=== PATIENT | female | born 1990 | race Caucasian/White ===

== ENCOUNTER 2018-10-26 07:11 | Emergency (ER) | payer SELFPAY ==
[~2018-10-26 07:11] MED LIST: ALB0.5 INH; AZIT500T47 PO; CODEINE; DOXY100T3 PO; HYDR115S3 PO; PHENERGAN; PRE20 PO
[2018-10-26] MEDS ORDERED: LIDOCAINE 2% VISC SLN 15ML UDC PO ONE (07:40)
[2018-10-26] MEDS ORDERED: BENZONATATE 100 MG CAP PO ONE (07:40)
[2018-10-26 08:00] VITALS: BP 150/103
--- NOTE | 2018-10-26 08:01 | ER Report ---
History and Physical Time Seen By MD: 07:20 Hx. of Stated Complaint: bloddy sputum, cough, sore throat HPI/ROS CHIEF COMPLAINT: Cough with blood HISTORY OF PRESENT ILLNESS: 28-year-old female has had approximately 2 weeks of intermittent cough, mild shortness of breath, mild nausea, hoarseness. She state s her sister is have the same for approximately one week longer than her. Patient presents because today when she coughed she noticed some blood in the cough. Her sputum was mostly bloody and states it filled about half a cup. She has never had blood before. She is not increasingly short of breath. She admits to smoking approximately 2-3 cigarettes a day. She denies alcohol. She denies other medical problems or coagulopathy. She has not had Weight loss, night sweats, fevers, bone pain. She has tried [id number] medications with minimal relief. REVIEW OF SYSTEMS: Constitutional: No fever, no chills. Eyes: No discharge. ENT: sore throat secondary to drainage Cardiovascular: No chest pain, no palpitations. Respiratory: above Gastrointestinal: No abdominal pain, no vomiting. Genitourinary: no dysuria Musculoskeletal: No back pain. Skin: No rashes. Neurological: mild headache Remainder of the 14 system rev: Yes Allergies: Coded Allergies: No Known Drug Allergies (Unverified , 06/17/12) Home Meds Discontinued Reported Medications Albuterol Sulfate (Albuterol Inh Conc) 2.5 Mg/0.5 Ml Nebu, 2.5 MG INH ONCE DILUTE BEFORE USING 06/17/12 Reviewed Nurses Notes: Yes Hx Smoking: Yes Hx Substance Use Disorder: No Hx Alcohol Use: No Constitutional Vital Sign - Last 24 Hours 10/26/18 07:20 Temp 98.2 Pulse 78 Resp 20 B/P (MAP) 145/108 Pulse Ox 97 O2 Delivery Room Air Physical Exam General Appearance: The patient is alert, has no immediate need for airway protection and no signs of toxicity. occasional nonproductive cough in ED, thoug h pt is able to produce one sample with sm amount of hemoptysis that is predominantly sputum. Hoarse voice Eyes: Pupils equal and round no pallor or injection. ENT, Mouth: Mucous membranes are moist. OP with cobblestoning, mild erythema, no tonsilar exudates. Uvula midline, no HEADING MAKER Respiratory: There are no retractions, lungs are clear to auscultation. No tachypnea, no r/r/w Cardiovascular: Regular rate and rhythm. Gastrointestinal: Abdomen is soft and non tender, no masses, bowel sounds normal. Neurological: alert, oriented, moves all ext Skin: Warm and dry, no rashes. Musculoskeletal: No cervical LAD Extremities are nontender, nonswollen and have full range of motion. DIFFERENTIAL DIAGNOSIS: After history and physical exam differential diagnosis w as considered for PE, tumor, pneumonia, bronchitis, or other emergent etiology of symptoms. Medical Decision Making EKG/Imaging Imaging X-ray: chest was obtained. I viewed the images myself on the PACS system. My interpretation of the images is: NACPD. The radiologist interpretation had no clinically significant variation from this interpretation. ED Course/Re-evaluation ED Course 28 f with ongoing cough and new hemoptysis. Considered multiple etiologies in differential but constellation of symptoms and posttest prob most c/w bronchitis. Will tx supportively. Pt aware of elevated bp and will f/u for re- eval. Decision to Disposition Date: Oct 26, 2018 Decision to Disposition Time: 08:23 Depart Departure Latest Vital Signs Vital Signs Date Time Temp Pulse Resp B/P (MAP) Pulse Ox O2 Delivery O2 Flow Rate FiO2 10/26/18 07:20 98.2 78 20 145/108 97 Room Air Impression: Primary Impression: Bronchitis Additional Impressions: Hemoptysis Elevated blood pressure reading Condition: Improved Disposition: HOME OR SELF-CARE Referrals: [facility] New Scripts Benzonatate 100 Mg Cap (TESSALON PERLE 100 MG CAP) 100 Mg Capsule 100 MG PO TID for cough, #15 CAP Prov: ANIYAH CRANE MD 10/26/18 Departure Forms: ER Transition Record, Off Work/School Form, School or Work Release?: Work Number of days to be released: 2 Patient Portal Information Patient Instructions: Acute Bronchitis (ED), Hemoptysis (ED) Additional Instructions: As we discussed, you may try honey or salt water for the sore throat. You may continue to use over the counter medications such as nyquil or ibuprofen, as well as the tessalon for cough. Return for worsening symptoms or any concerns. Problem Qualifiers ANIYAH CRANE MD Oct 26, 2018 08:01
--- NOTE | 2018-10-26 08:11 | RADIOLOGY IMAGING REPORT ---
FACILITY: [facility] PATIENT NAME: Zehra Sandhu : 1990 MR: [id number] V: [id number] EXAM DATE: ORDERING PHYSICIAN: ANIYAH CRANE TECHNOLOGIST: Location: [facility] Patient: Zehra Sandhu : 1990 Visit/Account:[id number] Date of Sevice: 10/26/2018 Chest single view: HISTORY: Dyspnea, hemoptysis. COMPARISON: 06/06/2012 FINDINGS: Frontal and lateral chest: Cardiomediastinal silhouette is within normal limits. There is n o infiltrate or pleural effusion. No pneumothorax. Pulmonary vasculature is normal. Osseous structures are unremarkable for age. IMPRESSION: No evidence of acute cardiopulmonary abnormality. Report Dictated By: Alivia Tamayo MD at 10/26/2018 8:05 AM Report E-Signed By: Alivia Tamayo MD at 10/26/2018 8:06 AM WSN:[id number]
[2018-10-26] MEDS ORDERED: BENZ100C4 PO (08:24)
== END 2018-10-26 08:32 | disposition home or self-care (01) ==
LOC: ER 07:23
DX: J40 Bronchitis, not specified as acute or chronic (principal); R04.2 Hemoptysis; R03.0 Elevated blood-pressure reading, without diagnosis of hypertension; F17.210 Nicotine dependence, cigarettes, uncomplicated
CPT/HCPCS: 71046; 99283

== ENCOUNTER 2019-03-08 23:50 | Emergency (ER) | payer SELFPAY ==
[~2019-03-08 23:50] MED LIST changes: +BENZ100C4 PO
--- NOTE | 2019-03-09 00:04 | ER Report ---
History and Physical Time Seen By MD: 00:04 Hx. of Stated Complaint: SICK FOR 5 DAYS, SORE THROAT & VOMITING X 2-3 DAYS HPI/ROS CHIEF COMPLAINT: sore throat, vomiting HISTORY OF PRESENT ILLNESS: This is a 28 year old female. She has been sick for about 5 days. Sore throat, intermittent vomiting. Today started to lose voice and coughing. No runny nose. Some ear pain. No abdominal pain. Last time similar symptoms and told she had bronchitis, then was positive for strep, treated with antibiotics and got better. She does smoke, but no history of asthma or COPD. NO use of inhalers. Allergies: Coded Allergies: No Known Drug Allergies (Unverified , 03/08/19) Home Meds Active Scripts Benzonatate 100 Mg Cap (TESSALON PERLE 100 MG CAP) 100 Mg Capsule, 100 MG PO TID PRN for COUGH, #15 CAP 0 Refills Prov:GORDON ALLEN MD 03/09/19 Prednisone (PREDNISONE) 20 Mg Tablet, 60 MG PO QDAY for 4 Days, #12 TAB 0 Refills Prov:GORDON ALLEN MD 03/09/19 Discontinued Scripts Benzonatate 100 Mg Cap (TESSALON PERLE 100 MG CAP) 100 Mg Capsule, 100 MG PO TID for cough, #15 CAP Prov:ANIYAH CRANE MD 10/26/18 Reviewed Nurses Notes: Yes Hx Smoking: Yes Hx Substance Use Disorder: No Hx Alcohol Use: No Constitutional Vital Sign - Last 24 Hours 03/08/19 03/09/19 03/09/19 03/09/19 23:56 00:00 00:15 00:15 Temp 98.1 Pulse 82 86 77 Resp 16 18 B/P (MAP) 143/91 121/89 (100) Pulse Ox 91 93 O2 Delivery Room Air 03/09/19 03/09/19 03/09/19 03/09/19 00:30 00:45 01:00 01:15 Pulse 95 B/P (MAP) 133/86 (102) 142/88 (106) Pulse Ox 94 92 89 03/09/19 03/09/19 01:20 01:30 Pulse 98 87 B/P (MAP) 145/93 (110) Pulse Ox 91 Intake and Output 03/08/19 03/08/19 03/09/19 15:00 23:00 07:00 Intake Total 1000 ml Balance 1000 ml Physical Exam General Appearance: The patient is alert. No acute distress. Eyes: Pupils are equal, round. No pallor, injection or icterus. ENT: Mucous membranes are moist. Normal oral mucosa. Posterior oropharynx with erythema. Nasal mucosa erythematous. Normal tympanic membranes and canals. Neck: Supple and non tender. Some submandibular lymphadenopathy. Respiratory: Lungs with rhonchi and some wheezing on expiration. No accessory muscle use. Cardiovascular: Regular rate and rhythm. No murmurs, gallops or rubs. Normal capillary refill. Gastrointestinal: Abdomen is soft and non tender. Nondistended. Normal active bowel sounds. Neurological: Alert and oriented x3. No focal neurologic deficits Skin: Warm and dry. Musculoskeletal: Extremities are nontender. No tenderness in palpation of the cervical, thoracic and lumbar spine. DIFFERENTIAL DIAGNOSIS: After history and physical exam, differential diagnosis was considered for fever, sore throat, now also with cough. Check strep, influenza, chest x-ray. Provide IV fluids, not nauseated now. Will give breathing treatment. Medical Decision Making Data Points Result Diagram: 03/09/19 0028 03/09/19 0028 Laboratory Hematology Test 03/09/19 00:23 03/09/19 00:24 03/09/19 00:28 Influenza Virus Type A (PCR) Negative (NEGATIVE) Influenza Virus Type B (PCR) Negative (NEGATIVE) Group A Streptococcus (PCR) Negative (NEGATIVE) Red Blood Count 5.35 M/uL (4.17-5.56) Mean Corpuscular Volume 87.3 fL (80.0-96.0) Mean Corpuscular Hemoglobin 29.4 pg (26.0-33.0) Mean Corpuscular Hemoglobin Concent 33.7 g/dL (32.0-36.0) Red Cell Distribution Width 15.0 % (11.5-14.5) Mean Platelet Volume 8.9 fL (7.2-11.1) Neutrophils (%) (Auto) 57.6 % (39.4-72.5) Lymphocytes (%) (Auto) 33.1 % (17.6-49.6) Monocytes (%) (Auto) 6.0 % (4.1-12.4) Eosinophils (%) (Auto) 2.3 % (0.4-6.7) Basophils (%) (Auto) 1.0 % (0.3-1.4) Nucleated RBC Relative Count (auto) 0.0 /100WBC Neutrophils # (Auto) 8.0 K/uL (2.0-7.4) Lymphocytes # (Auto) 4.6 K/uL (1.3-3.6) Monocytes # (Auto) 0.8 K/uL (0.3-1.0) Eosinophils # (Auto) 0.3 K/uL (0.0-0.5) Basophils # (Auto) 0.1 K/uL (0.0-0.1) Nucleated RBC Absolute Count (auto) 0.01 K/uL Sodium Level 136 mmol/L (137-145) Potassium Level 4.0 mmol/L (3.5-5.0) Chloride Level 106 mmol/L (98-107) Carbon Dioxide Level 26 mmol/L (22-31) Blood Urea Nitrogen 6 mg/dl (7-18) Creatinine 0.70 mg/dl (0.52-1.04) Glomerular Filtration Rate Calc > 60.0 Random Glucose 102 mg/dl (75-110) Calcium Level 9.4 mg/dl (8.4-10.2) Total Bilirubin 0.2 mg/dl (0.2-1.3) Aspartate Amino Transf (AST/SGOT) 31 U/L (0-35) Alanine Aminotransferase (ALT/SGPT) 37 U/L (0-56) Alkaline Phosphatase 63 U/L (0-126) Total Protein 6.2 g/dl (6.3-8.2) Albumin 3.4 g/dl (3.5-5.0) Chemistry Test 03/09/19 00:23 03/09/19 00:24 03/09/19 00:28 Influenza Virus Type A (PCR) Negative (NEGATIVE) Influenza Virus Type B (PCR) Negative (NEGATIVE) Group A Streptococcus (PCR) Negative (NEGATIVE) White Blood Count 13.8 k/uL (4.5-11.0) Red Blood Count 5.35 M/uL (4.17-5.56) Hemoglobin 15.8 g/dL (12.0-16.0) Hematocrit 46.7 % (34.0-47.0) Mean Corpuscular Volume 87.3 fL (80.0-96.0) Mean Corpuscular Hemoglobin 29.4 pg (26.0-33.0) Mean Corpuscular Hemoglobin Concent 33.7 g/dL (32.0-36.0) Red Cell Distribution Width 15.0 % (11.5-14.5) Platelet Count 340 K/uL (150-450) Mean Platelet Volume 8.9 fL (7.2-11.1) Neutrophils (%) (Auto) 57.6 % (39.4-72.5) Lymphocytes (%) (Auto) 33.1 % (17.6-49.6) Monocytes (%) (Auto) 6.0 % (4.1-12.4) Eosinophils (%) (Auto) 2.3 % (0.4-6.7) Basophils (%) (Auto) 1.0 % (0.3-1.4) Nucleated RBC Relative Count (auto) 0.0 /100WBC Neutrophils # (Auto) 8.0 K/uL (2.0-7.4) Lymphocytes # (Auto) 4.6 K/uL (1.3-3.6) Monocytes # (Auto) 0.8 K/uL (0.3-1.0) Eosinophils # (Auto) 0.3 K/uL (0.0-0.5) Basophils # (Auto) 0.1 K/uL (0.0-0.1) Nucleated RBC Absolute Count (auto) 0.01 K/uL Glomerular Filtration Rate Calc > 60.0 Calcium Level 9.4 mg/dl (8.4-10.2) Total Bilirubin 0.2 mg/dl (0.2-1.3) Aspartate Amino Transf (AST/SGOT) 31 U/L (0-35) Alanine Aminotransferase (ALT/SGPT) 37 U/L (0-56) Alkaline Phosphatase 63 U/L (0-126) Total Protein 6.2 g/dl (6.3-8.2) Albumin 3.4 g/dl (3.5-5.0) ED Course/Re-evaluation ED Course improved with breathing treatment. Chest x-ray clear. Negative strep and influenza. Appears like a viral bronchitis. Home with inhaler, Prednisone, and benzonatate. Decision to Disposition Date: March 09, 2019 Decision to Disposition Time: 01:23 Depart Departure Latest Vital Signs Vital Signs Date Time Temp Pulse Resp B/P (MAP) Pulse Ox O2 Delivery O2 Flow Rate FiO2 03/09/19 01:30 87 145/93 (110) 91 03/09/19 00:15 18 03/08/19 23:56 98.1 Room Air Impression: Primary Impression: Bronchitis Condition: Improved Disposition: HOME OR SELF-CARE New Scripts Benzonatate 100 Mg Cap (TESSALON PERLE 100 MG CAP) 100 Mg Capsule 100 MG PO TID PRN for COUGH, #15 CAP 0 Refills Prov: GORDON ALLEN MD 03/09/19 Prednisone (PREDNISONE) 20 Mg Tablet 60 MG PO QDAY for 4 Days, #12 TAB 0 Refills Prov: GORDON ALLEN MD 03/09/19 Patient Instructions: Acute Bronchitis (ED) Additional Instructions: Rest and increase fluid intake. Take the steroid Prednisone 20mg tablets, 3 tablets once a day for 4 days Albuterol inhaler, 2 inhalations every 4 hours as needed for cough and trouble breathing. Benzonatate 100mg every 8 hours as needed for cough. Off work today and tomorrow. GORDON ALLEN MD March 09, 2019 00:04
[2019-03-09] MEDS ORDERED: NS(*) 0.9% 1000 ML BAG 1,000 ML IV ONE (00:10)
[2019-03-09] MEDS ORDERED: ALBUTEROL/IPRATROPIUM 3 ML NEB NEB ONE (00:10)
[2019-03-09 00:40] LABS: PLATELET COUNT, AUTOMATED 340 K/uL (150-450)
--- NOTE | 2019-03-09 01:12 | RADIOLOGY IMAGING REPORT ---
FACILITY: [facility] [place] PATIENT NAME: Zehra Sandhu : 1990 MR: [id number] V: [id number] EXAM DATE: ORDERING PHYSICIAN: GORDON ALLEN TECHNOLOGIST: Location: [facility] Patient: Zehra Sandhu : 1990 Visit/Account:[id number] Date of Sevice: 03/09/2019 CHEST PA LAT HISTORY: Cough for one week. COMPARISON: 10/26/2018 and studies dating to 06/06/2012. TECHNIQUE: PA and lateral views of the chest. FINDINGS: Pulmonary/pleura: Lungs are clear. There is no pneumothorax or pleural effusion. Cardiomediastinal: Cardiac and mediastinal silhouettes are within normal limits. Bones/soft tissues: No acute osseous abnormality. The visible abdomen is normal. IMPRESSION: 1. No acute cardiopulmonary process. Report Dictated By: Meryl Trent at 03/09/2019 1:07 AM Report E-Signed By: Meryl Trent at 03/09/2019 1:08 AM WSN:[id number]
[2019-03-09] MEDS ORDERED: BENZ100C4 PO (01:24)
[2019-03-09] MEDS ORDERED: PRED20TA6 PO (01:24)
[2019-03-09] MEDS ORDERED: predniSONE 20 MG TAB PO ONE (01:25)
[2019-03-09] MEDS ORDERED: BENZONATATE 100 MG CAP PO ONE (01:25)
[2019-03-09] MEDS ORDERED: ALBUTEROL 8 GM INHALER INH ONE (01:25)
[2019-03-09 01:30] VITALS: BP 145/93
== END 2019-03-09 01:48 | disposition home or self-care (01) ==
LOC: ER 23:59
DX: J20.8 Acute bronchitis due to other specified organisms (principal)
CPT/HCPCS: 71046; 85025; 87502; 87653; 94640; 96360; 99283; J7030; J7512; J7620; 82040; 82247; 82310; 82374; 82435; 82565; 82947; 84075; 84132; 84155; 84295; 84450; 84460; 84520